=== PATIENT | male | born 1955 | race Caucasian/White ===

== ENCOUNTER 2018-09-14 12:44 | Day surgery (SDC) | payer MEDICARE, OTHER ==
[2018-09-14] VITALS (12 sets, daily range): BP systolic 94–144; BP diastolic 60–85; PULSE 65–110; TEMP 97.8–99.3
[~2018-09-14] VITALS: Ht 172.7 cm; Wt 80.5 kg
[2018-09-14] MEDS ORDERED: SYNTHROID0.05 MG/TA PO (15:07)
[2018-09-14] MEDS ORDERED: ASPIRIN E.C. 8181 MG PO (15:08)
[2018-09-14] MEDS ORDERED: COREG 3.123.125 MG/T PO (15:09)
[2018-09-14] MEDS ORDERED: BRILINTA90 MG PO (15:10)
[2018-09-14] MEDS ORDERED: LIPITOR20 MG PO (15:10)
[2018-09-14] MEDS ORDERED: TYLENOL 500MG500 MG PO (15:14)
[2018-09-14] MEDS ORDERED: MI-ACID 200 MG-1 CT1 PO (15:15)
--- NOTE | 2018-09-14 15:22 | NUR ---
1400 PT BP WAS 94/73, ASKED PT PROVIDER IF THEY WANTED US TO CONTINUE THE NITRO PATCH TRANSDERMALLY. PATCH WAS THEN REMOVED PER LEFT POSTERIOR SHOULDER.ISAURORN
[2018-09-14] MEDS ORDERED: PLAVIX 75MG TAB75 MG PO (16:39)
--- NOTE | 2018-09-14 17:29 | NUR ---
PT TO FLOOR FROM PACU REPORT FROM NANCY ARIAS. PT IS A/O X3 CBI RUNNING. IV TO PUMP PER ORDERS. FAMILY AT BEDSIDE.
--- NOTE | 2018-09-14 21:00 | NUR ---
Patient in bed, is alert and oriented x4. Reports he had the dose of Plavix 300mg given by previous shift. Takes HS Lipitor without problem. Has pereyra to BSD with CBI at minimal rate, urine is pink. IVF to right hand without redness or swelling. No concerns offered.
[2018-09-15 04:27] VITALS: BP 119/72; PULSE 59; TEMP 98.5
--- NOTE | 2018-09-15 06:00 | NUR ---
Offers no complaints, pereyra is pink, CBI infusing very slow rate.
--- NOTE | 2018-09-15 07:01 | NUR ---
Report from Do ARIAS.
[2018-09-15 08:25] VITALS: BP 106/62; PULSE 73; TEMP 97.5
--- NOTE | 2018-09-15 09:17 | NUR ---
Initial visit; Patient and his thanked Wagon Driver for offering spiritual care. Patient declined.
--- NOTE | 2018-09-15 10:30 | NUR ---
Pt and his instructed on mitomycin instillation process, handling of urine post treatment, and general purpose. Pt has recieved chemotherapy before so aware of precautions as well. C/o bladder feeling full almost immediately after instillation although 500ml was drained from pereyra bag and was unable to drain any other urine from bladder. Consent for mitomycin was signed yesterday as part of the total procedure. using sterile technique and following chemotherapy precautions, 40 ml was instilled into bladder after pereyra was clamped. Sherif Clark RN has called Dr Lewis to get something to help with bladder spasms and will administer as pt has refused B&O supp. is at bedside and will help him turn q15min.
--- NOTE | 2018-09-15 11:49 | NUR ---
Called to pt room at 1120 with pt reporting that he cannot take it anymore and wants bladder drained. When I had checked on him 10 minutes earlier, he reported he was doing well. He did have an episode of what he thought was leaking around the catheter. Pericare was done but only dired blood was seen. Gauze was placed around the catheter and remained dry for rest of time. At the time the cather was unclamped and released, there was a return of slightly less than 200ml of purple tinged urine, clear and without clots. CBI was started as per order and will plan to dc pereyra after 30 minutes. Pt and were informed of plan.
[2018-09-15 12:18] VITALS: BP 102/57; PULSE 77; TEMP 97.7
--- NOTE | 2018-09-15 12:18 | NUR ---
CBI has been running x30 minutes and urine remains clear. Pereyra balloon emptied and pereyra cath removed using chemotherapy precautions. Pt almost immediately reports he has to void and assisted up to bathroom and voided small amt of blood tinged urine. Reoport to Sherif Clark RN. Chemotherapy precautions remain in place.
--- NOTE | 2018-09-15 12:39 | NUR ---
PT PASSED URINATION AFTER REMOVAL OF CATHETER BY HERI MCDERMOTT. DISCHARGE INSTRUCIONS PROVIDED AND QUESTIONS ANSWERED. PATIENT LEFT AMBULATORY.
== END 2018-09-15 12:41 | disposition home or self-care (01) ==
LOC: SDCO 12:44 → SURG 16:49 → SDCO 09-15 12:41
DX: C67.9 Malignant neoplasm of bladder, unspecified (principal); Z79.82 Long term (current) use of aspirin; Z79.899 Other long term (current) drug therapy; I10 Essential (primary) hypertension; K21.9 Gastro-esophageal reflux disease without esophagitis; E07.9 Disorder of thyroid, unspecified; Z85.21 Personal history of malignant neoplasm of larynx; F17.210 Nicotine dependence, cigarettes, uncomplicated; Z80.1 Family history of malignant neoplasm of trachea, bronchus and lung; Z95.5 Presence of coronary angioplasty implant and graft
CPT/HCPCS: OP; J0690; J2405; J2704; J3010; J3480; J7120; J9280; Q9967

== ENCOUNTER 2018-10-19 13:32 | Day surgery (SDC) | payer MEDICARE, OTHER ==
[~2018-10-19] VITALS: Ht 172.7 cm; Wt 81.0 kg
[2018-10-19] VITALS (7 sets, daily range): BP systolic 100–124; BP diastolic 61–71; PULSE 63–80; TEMP 97.7–97.8
[~2018-10-19 13:32] MED LIST: ASPIRIN E.C. 8181 MG PO; BRILINTA90 MG PO; COREG 3.123.125 MG/T PO; LIPITOR20 MG PO; MI-ACID 200 MG-1 CT1 PO; PLAVIX 75MG TAB75 MG PO; SYNTHROID0.05 MG/TA PO; TYLENOL 500MG500 MG PO
--- NOTE | 2018-10-19 17:57 | NUR ---
Pt arrived to floor at thsi time via bed with PACU staff. CBI running wide open, clear fluid, slowed way down to a minimal drip. Pt anticipating dishcarge tonight. Denies needs, will continue to monitor.
--- NOTE | 2018-10-19 18:29 | NUR ---
Pt doing really well. Urine is clear, CBI now clamped. VSS. Will continue to monitor.
--- NOTE | 2018-10-19 19:24 | NUR ---
Per Dr. Lewis, urine was clear and yellow, clamped for over 30 minutes. primed catheter with 200 mls of CBI. pulled catheter, 28 ccs aspirated from the baloon. . Pt immediately urinated on bed. Wanted to get up to urinate in bathroom. Do RN to resume care.
--- NOTE | 2018-10-19 19:40 | NUR ---
Spoke with Dr Lewis regarding patients desire to discharge, and ability to void. New order to discharge and follow up after biopsy report is back.
--- NOTE | 2018-10-19 20:20 | NUR ---
Reviewed discharge instructions with patient and spouse, IV site dc'd angiocath intact. Patient dressed and ready to go. Has voided x2 200cc each time of light pink urine.
--- NOTE | 2018-10-19 20:30 | NUR ---
Discharged patient via ambulatory status to private car. Personal belongings sent with patient as well as copy of discharge instructions.
== END 2018-10-19 20:30 | disposition home health service (06) ==
LOC: SDCO 13:32 → SURG 17:53 → SDCO 20:30
DX: D09.0 Carcinoma in situ of bladder (principal); F17.210 Nicotine dependence, cigarettes, uncomplicated; K21.9 Gastro-esophageal reflux disease without esophagitis; I10 Essential (primary) hypertension; Z79.82 Long term (current) use of aspirin; Z85.828 Personal history of other malignant neoplasm of skin; Z80.1 Family history of malignant neoplasm of trachea, bronchus and lung; Z92.21 Personal history of antineoplastic chemotherapy
CPT/HCPCS: OP; J0690; J1100; J2405; J2704; J3010

== ENCOUNTER 2018-10-21 09:19 | Observation (INO) | payer MEDICARE, OTHER ==
[2018-10-21] VITALS (7 sets, daily range): BP systolic 102–113; BP diastolic 52–80; PULSE 70–86; TEMP 97.8–97.9
[~2018-10-21] VITALS: Ht 172.7 cm; Wt 82.5 kg
[2018-10-21 11:00] LABS: COLLECTION METHOD CATHETER
[2018-10-21 11:09] LABS: SQUAMOUS EPITHELIAL None Seen /hpf; URINE BACTERIA None Seen /hpf; URINE RBC >50 /hpf
[2018-10-21 11:10] LABS: PH 7 (5-8); URINE APPEARANCE Turbid; URINE BILIRUBIN Negative (NEGATIVE); URINE BLOOD 3+ (NEGATIVE); URINE GLUCOSE 1+ (NEGATIVE); URINE KETONE 1+ (NEGATIVE); URINE LEUKOCYTE ESTERASE Negative (NEGATIVE); URINE NITRATE Negative (NEGATIVE); URINE PROTEIN(semi-quant) 3+ (NEGATIVE); URINE UROBILINOGEN Negative (NEGATIVE)
[2018-10-21 11:11] LABS: URINE COLOR Red
[2018-10-21 13:12] LABS: BASO % 0.2 % (0.0-2.0); EOS # 0.1 (0.0-0.7); GRAN # 7.4 (1.4-6.5); GRAN % 73.1 % (42.2-75.2); LYMPH # 1.5 (1.2-3.4); LYMPH % 15.1 % (20.0-51.0); MEAN CELL VOLUME 96 fl (80.0-100.0); MEAN CORPUSCULAR HGB CONC 33 g/dl (33.0-37.0); MEAN PLATELET VOLUME 8.7 fl (7.4-10.4); MONO % 9.6 % (1.7-9.3); PLATELET COUNT 400 K/mm3 (130-400); RED BLOOD COUNT 3.14 M/mm3 (4.20-5.60); REDCELL DISTRIBUTION WIDTH-CV 14.9 % (11.5-14.5)
[2018-10-21 13:13] LABS: HEMATOCRIT 30.2 % (42.0-52.0); HEMOGLOBIN 9.9 g/dl (13.5-18.0); MEAN CORPUSCULAR HEMOGLOBIN 32 pg (27.0-31.0)
--- NOTE | 2018-10-21 14:56 | NUR ---
Assessment completed, alert/oriented, vital signs stable, reporst some cramping and discomfort but pain is tolerable, placed catheter in ED / bright red bloody urine noted, plans for surgery/cysto this afternoon, heart RRR/ distal pulses are palpable, lungs CTA/no resp.difficulty, present at bedside, consent signed, denies other needs
--- NOTE | 2018-10-21 15:45 | NUR ---
Patient going to OR at this time
--- NOTE | 2018-10-21 18:02 | NUR ---
Patient arrived back to the Surgical floor from PACU, he is alert/oriented, vital signs stable, denies pain or disomfort, CBI running/ output clear, present, he is ordering some dinner, is keeping patient overnight for observation, will discharge in the morning if his night goes ok, present, denies needs
--- NOTE | 2018-10-21 20:30 | NUR ---
Consumes all of supper. Denies pain. CBI at slow rate with return of yellow urine. Is alert and oriented x4.
[2018-10-22 01:00] VITALS: BP 107/57; PULSE 72; TEMP 97.6
--- NOTE | 2018-10-22 05:00 | NUR ---
Urine yellow, CBI slow drip. No concerns voiced at this time.
[2018-10-22 05:25] VITALS: BP 106/61; PULSE 70; TEMP 98.1
--- NOTE | 2018-10-22 06:00 | NUR ---
CBI clamped, urine yellow and clear.
[2018-10-22 08:29] VITALS: BP 115/62; PULSE 65; TEMP 98
--- NOTE | 2018-10-22 09:39 | NUR ---
Assessment completed, alert/oriented, vital signs stable, denies pain, prime and pull per / iff looks ok and he is voiding urine well wihtout problems, has order to discharge home, present, eating breakfast, denies needs
--- NOTE | 2018-10-22 10:00 | NUR ---
discharge instructions discussed with patient and his , isntructed to drink plenty of water to keep bladder flushing out, instructed to relax and not over exert for 24-48 hours, resume normal diet, resume previous medicaitons, no new meds ordered, IV removed, i personall escorted them out the door
== END 2018-10-22 10:02 | disposition home or self-care (01) ==
LOC: COL.ER 09:19 → JCC 11:28
PROVIDERS: Physician Assistant; ADMIT Urology
DX: R31.0 Gross hematuria (principal); R33.8 Other retention of urine; C67.4 Malignant neoplasm of posterior wall of bladder; I25.2 Old myocardial infarction; I10 Essential (primary) hypertension; F17.210 Nicotine dependence, cigarettes, uncomplicated; Z79.82 Long term (current) use of aspirin; J44.9 Chronic obstructive pulmonary disease, unspecified; Z79.02 Long term (current) use of antithrombotics/antiplatelets; Z85.21 Personal history of malignant neoplasm of larynx; Z85.01 Personal history of malignant neoplasm of esophagus; Z80.1 Family history of malignant neoplasm of trachea, bronchus and lung
CPT/HCPCS: G0378; J0690; J1100; J2270; J2405; J2704; J3010; J7030